=== PATIENT | male | born 1985 | race Caucasian/White ===

== ENCOUNTER 2022-07-28 10:48 | Outpatient (REF) | payer OTHER, SELFPAY ==
[2022-07-28 14:17] LABS: Appearance Urine Clear; Color Urine Yellow; Glucose Urine UA Negative (Negative); Leukocyte Esterase Urine Negative (Negative); Nitrite Urine Negative (Negative); PH 6.5 (5.0-9.0); Urine Blood Negative (Negative); Urine Ketones Negative (Negative); Urine Protein Negative (Neg-Trace)
[2022-07-28 14:22] LABS: Alanine Aminotransferase 9 U/L (0-40); Albumin Level 4.9 g/dL (3.5-5.0); Alkaline Phosphatase 79 U/L (39-117); Anion Gap 14 (12-20); Aspartate Amino Transferase 15 U/L (5-37); Bilirubin Total 1.3 mg/dL (0.0-1.0); Blood Urea Nitrogen 15 mg/dL (9-16); Calcium 9.6 mg/dL (8.4-10.2); Carbon Dioxide 26 mmol/L (22-29); Chloride 104 mmol/L (96-108); Cholesterol 129 mg/dL; Estimated Glomerular Filt Rate > 60; Glucose Fasting 91 mg/dL (60-99); HDL Cholesterol 37 mg/dL; LDL Cholesterol Calculated 79 mg/dl; Potassium 4.2 mmol/L (3.3-5.1); Sodium 140 mmol/L (135-145); Total Protein 7.4 g/dL (6.5-8.0); Triglycerides 68 mg/dL
[2022-07-28 14:44] LABS: TSH reflex Free T4 1.33 uIU/mL (0.32-4.0)
[2022-07-28 15:03] LABS: Syphilis Screen Nonreactive (Nonreactive)
[2022-07-31 09:13] LABS: HBS Num1 144.95 mIU/mL (0-7.99); HBc Num1 0.12 S/CO (0.00-0.79); HBsAGNum1 0.23 S/CO (0.00-0.99); HIV AB/AG Nonreactive (Nonreactive); HIV Num 1 0.08 S/CO (0.00-0.99); Hepatitis B Core Antibody Nonreactive (Nonreactive); Hepatitis B Surface Antigen Negative (Negative); ~HepC Num1 0.14 S/CO (0.00-0.79); ~Hepatitis B Surface Antibody REACTIVE (Nonreactive); ~Hepatitis C Antibody Nonreactive (Nonreactive)
== END 2022-07-28 10:49 | disposition home or self-care (01) ==
LOC: HO.WFDLDS 10:48
PROVIDERS: Visit Provider Family Medicine
DX: Z00.00 Encounter for general adult medical examination without abnormal findings (principal); Z11.4 Encounter for screening for human immunodeficiency virus [HIV]; Z11.59 Encounter for screening for other viral diseases; Z13.220 Encounter for screening for lipoid disorders; Z11.3 Encounter for screening for infections with a predominantly sexual mode of transmission; Z13.29 Encounter for screening for other suspected endocrine disorder
CPT/HCPCS: 36415; 80053; 80061; 81003; 84443; 86704; 86706; 86780; 86803; 87340; 87389

== ENCOUNTER 2023-10-08 13:46 | Outpatient (AMB) | payer BC, SELFPAY ==
[2023-10-08 13:51] VITALS: BP 118/74; PULSE 70; RESP 13; TEMP 36.5; O2SAT 99; BMI 27.3
--- NOTE | 2023-10-08 13:51 | MHC.PC.OV ---
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 No recent CPE-labs to review. His HDL was low at 37 on 07/28/22. Pt does report bright red blood in stools and tinges the toilet bowl. He reports pain associated with the movement. [facility] Medical History No pertinent past medical history Surgical History H/O shoulder surgery Social History Housing: House Patient Tobacco Use Status: Never used Tobacco e-Cigarette/Vaping Use: Never Used Second Hand Smoke Exposure: No service: No Current occupational status: employed Current occupation: [employer] Cognitive needs: No Hearing needs: No Vision needs: Yes Questionnaire PHQ-9 Over the last 2 weeks, how often have you been bothered by any of the following problems? 1. Little interest or pleasure in doing things: not at all 2. Feeling down, depressed, or hopeless: not at all 3. Trouble falling or staying asleep, or sleeping too much: several days 4. Feeling tired or having little energy: not at all 5. Poor appetite or overeating: not at all 6. Feeling bad about yourself - or that you are a failure or have let yourself or your family down: not at all 7. Trouble concentrating on things, such as reading the newspaper or watching television: several days 8. Moving or speaking so slowly that other people could have noticed. Or the opposite - being so fidgety or restless that you have been moving around a lot more than usual: not at all 9. Thoughts that you would be better off or of hurting yourself in some way: not at all Total score: 2 Depression Screening Interpretation: Negative Depression Screening Done: Yes 12639 - PHQ-9 Billing: Yes Source: Developed by Drs. Lennox Bennett, Liudmila Loera, Gael Carias and colleagues, with an educational jose from [employer]. Thrive Questionnaire Date Thrive assessed: 10/08/23 I am a: Patient What is your living situation today?: I have a steady place to live Within the past 12 months, did the food you bought not last and you didn't have the money to get more?: Never true Within the past 12 months, did you worry whether your food would run out before you got money to buy more?: Never true Do you have trouble paying for medicines?: No Do you have trouble getting transportation to medical appointments?: No Do you have trouble paying your heating and electricity bill?: No Do you have trouble taking care of your child, family member or friend?: No Do you have trouble with day-to-day activities such as bathing, preparing meals, shopping, managing finances, etc.?: No Are you currently unemployed and looking for a job?: No Are you interested in more education?: No Please select the resources that you would like help with: Education Currently or been in a relationship where the following occur: no concerns reported AUDIT C Alcohol Use Questionnaire (AUDIT-C) 1. How often do you have a drink containing alcohol?: Monthly or less 2. How many drinks containing alcohol do you have on a typical day when you are drinking?: 3 or 4 3. How often do you have six or more drinks on one occasion?: Never Total Score: 2 SEPIDEH-7 AMB Questionnaire SEPIDEH-7 Date SEPIDEH - 7 assessed: 10/08/23 Feeling nervous, anxious, or on edge: 0 = Not at all Not being able to stop or control worryin = Not at all Worrying too much about different things: 0 = Not at all Trouble relaxin = Not at all Being so restless that it is hard to sit still: 3 = Nearly every day Becoming easily annoyed or irritable: 2 = More than half the days Feeling afraid as if something awful might happen: 0 = Not at all Total SEPIDEH-7 score (0-4 normal; 5-9 mild; 10-14 moderate; 15-21 severe): 5 Source: Developed by Drs. Lennox Bennett, Liudmila Loera, Gael Carias and colleagues, with an educational jose from [employer]. SEPIDEH-7 Assessment Billing SEPIDEH-7 Assessment Tool: SEPIDEH-7 Assessment 53012 Review of Systems Const Denies chills, Denies fatigue, Denies fever(s), Denies headache(s) and Denies weakness Eyes Denies change in vision ENT Denies dizziness, Denies headache(s), Denies hearing loss, Denies nasal congestion, Denies sinus pain, Denies sinus pressure and Denies sore throat Card Denies chest pain, Denies lightheadedness, Denies dyspnea and Denies other (palpitations) Resp Denies cough, Denies dyspnea and Denies wheezing GI Denies abdominal pain, Denies melena, Denies hematochezia, Denies change in bowel habits, Denies dyspepsia and Denies nausea Denies hematuria and Denies dysuria Musc Denies abnormal gait, Denies myalgias, Denies arthralgias, Denies numbness and Denies tingling Skin/Breast Denies rash, Denies unusual bruising and Denies wounds Neuro Denies abnormal gait, Denies dizziness, Denies headache(s), Denies memory loss, Denies numbness, Denies Sensory deficit (Neuro), Denies tingling and Denies weakness Psych Denies anxiety, Denies depression and Denies memory loss Endo Denies cold intolerance, Denies fatigue, Denies heat intolerance, Denies polydipsia and Denies polyuria Carlos/Lymph Denies easy bleeding and Denies easy bruising Aller/Immun Denies wheezing Physical exam (Primary Care) Vital Signs: Last Vital Signs Temp 97.7 F 10/08/23 13:51 Pulse 70 10/08/23 13:51 Resp 13 10/08/23 13:51 BP 118/74 10/08/23 13:51 Pulse Ox 99 10/08/23 13:51 Oxygen Delivery Method Room Air 10/08/23 13:51 BMI result Body Mass Index 27.3 Tobacco/Smoking Status: Tobacco use Status Tobacco use date assessed 10/08/23 10/08/23 14:02 Patient Tobacco Use Status Never used Tobacco 10/08/23 14:02 e-Cigarette/Vaping Use Never Used 10/08/23 14:02 PHQ-9: PHQ-9 Score PHQ-9: Total score 2 10/08/23 14:17 Depression Screening Interpretation: Negative Thrive Assessment: Date of Thrive Assessment Date Thrive assessed 10/08/23 10/08/23 14:02 Currently or been in a relationship where the following occur: no concerns reported Const General: no acute distress, well developed, alert and awake Nutritional Appearance: well nourished Orientation/consciousness: patient oriented x3 HENMT Head: Yes normocephalic and Yes atraumatic Ears: hearing grossly normal bilaterally and TM's normal bilaterally General nose exam: Normal external nose present and Normal nares present Mouth: Normal oral and palatal mucosa present and moist mucous membranes Teeth and gingiva: dentition normal Throat: Yes posterior oropharynx normal Eyes General: appearance normal, both eyes and all related structures Pupils: Equal, round and reactive pupils present and Pupil accommodation reflex normal EOM: EOMs intact bilaterally Neck Neck: Yes normal visual inspection, Yes no lymphadenopathy and Yes trachea midline Thyroid: Thyroid normal Carotids: no bruits Lymphatic: no lymphadenopathy noted Chest Chest palpation & inspection: normal inspection of the chest Resp Effort & Inspection: normal respiratory effort Auscultation: clear to auscultation bilaterally Cardio Rate: regular rate Rhythm: regular rhythm Heart sounds: S1 normal heart sound present, S2 normal heart sound present, no gallops, no murmurs and no rubs Bruits: no abdominal aortic bruits and no carotid bruits GI Palpation (GI): No Abdominal aortic bruit present, Soft to palpation, nontender, No hepatosplenomegaly present and No Rebound tenderness present Auscultation: normal bowel sounds General: Yes no CVA tenderness Back/Spine/Pelvis Back: no CVA tenderness Cervical Spine: cervical ROM normal and No Cervical spine tenderness Thoracic/Lumbar Spine: thoraco-lumbar ROM normal, No pain with thoraco-lumbar ROM, No thoracic spinal tenderness and No lumbar spinal tenderness Skin Lesions: no lesions Rashes: no rashes Trauma: no lacerations or abrasions Wounds: no wounds Nails: normal Neuro General: patient oriented x3 Cranial nerves: Yes Equal, round and reactive pupils present Cognition (Neuro): normal cognition Gait exam (Neuro): Normal gait present Motor exam (neuro): 5/5 motor strength present throughout Sensory Exam: No Sensory deficit (Neuro) Deep tendon reflexes (DTR's): Right patellar reflex intensity grade: 2+ and Left patellar reflex intensity grade: 2+ Extrem General: Yes normal to inspection and No edema Psych Appearance: grossly normal Affect: normal affect Attitude: cooperative Thought process: Normal thought process present Assessment and Plan Assessment & Plan (1) Adult general medical exam: Code(s): Z00.00 - Encounter for general adult medical examination without abnormal findings Plan: 38-year-old?male?presents?for?complete?physical?exam (2) Blood in stool: Code(s): K92.1 - Melena Plan: Bright?red?blood?per?rectum?associated?with?painful?bowel?movement Exam: (3) Low HDL (under 40): Code(s): E78.6 - Lipoprotein deficiency Plan: Had?encouraged?exercise?and?we?will?repeat?levels?again?and?review?in?a?few?weeks (4) Hemorrhoids: Code(s): K64.9 - Unspecified hemorrhoids Plan: Blood?per?rectum?and?pain?with?stools. Hemorrhoid?visualized?on?exam Hydrate?well?and?keep?stools?soft.??Will?give?patient?a?script?for?Colace. If?not?improving,?he?can?let?me?know?at?our?follow-up?telemedicine?appointment.??Would?refer?to?GI Medications: New docusate sodium (Colace) 100 mg PO DAILY 10 caps 1RF 10 days Coding Level of Care Code Est Pt Level 3 (44223) Est Pt Prev Care 18-39y(69929) Diagnoses Adult general medical exam Z00.00 Blood in stool K92.1 Low HDL (under 40) E78.6 Hemorrhoids K64.9 Additional Codes SEPIDEH-7 Assessment Billing - SEPIDEH-7 Assessment Tool: SEPIDEH-7 Assessment 54830 ([id number])
== END 2023-10-08 14:30 | disposition home or self-care (01) ==
PROVIDERS: PCP Family Medicine; Visit Provider Family Medicine
DX: Z00.00 Encounter for general adult medical examination without abnormal findings (principal); K92.1 Melena; E78.6 Lipoprotein deficiency; K64.9 Unspecified hemorrhoids
CPT/HCPCS: 99213; 99395

== ENCOUNTER 2023-10-12 09:13 | Outpatient (REF) | payer BC, SELFPAY ==
[2023-10-12 11:37] LABS: MANUAL DIFF FLAG NO
[2023-10-12 11:41] LABS: Basophils Percent Auto 0.5 % (0-2); Eosinophils Absolute Auto 0.1 X10*3/uL (0.0-0.4); Eosinophils Percent Auto 3.3 % (0-4); Hematocrit 44.9 % (42.0-52.0); Hemoglobin 15.5 g/dl (14.0-18.0); Imm Gran Abs Auto 0.01 X10*3/uL (0.00-0.03); Imm Gran Pct Auto 0.3 % (0.0-0.4); Lymphocytes Absolute Auto 0.9 X10*3/uL (1.2-4.9); Lymphocytes Percent Auto 22.4 % (20-40); Mean Corpuscular HGB Conc 34.5 g/dl (31.0-36.0); Mean Corpuscular Hemoglobin 29.7 pg (27.0-33.0); Mean Platelet Volume 10.8 fL (9.4-12.4); Monocytes Absolute Auto 0.3 X10*3/uL (0.1-1.2); Monocytes Percent Auto 7.9 % (2-11); Neutrophils Absolute Auto 2.6 x10*3/uL (2.0-8.3); Neutrophils Percent Auto 65.6 % (45-73); Platelet Count 190 X10*3/uL (160-400); Red Blood Count 5.22 X10*6/uL (4.60-5.80); Red Cell Distribution Width 11.8 % (11.0-16.0); White Blood Count 3.9 X10*3/uL (4.8-10.8)
[2023-10-12 12:33] LABS: Alanine Aminotransferase 17 U/L (0-40); Albumin Level 4.6 g/dL (3.5-5.0); Alkaline Phosphatase 65 U/L (39-117); Anion Gap 10 (12-20); Aspartate Amino Transferase 19 U/L (5-37); Blood Urea Nitrogen 12 mg/dL (9-16); Calcium 9.2 mg/dL (8.4-10.2); Carbon Dioxide 30 mmol/L (22-29); Chloride 106 mmol/L (96-108); Cholesterol 118 mg/dL (<200); Estimated Glomerular Filt Rate > 60; Glucose Fasting 87 mg/dL (60-99); HDL Cholesterol 35 mg/dL (>40); LDL Cholesterol Calculated 70 mg/dL (<100); Potassium 4.5 mmol/L (3.3-5.1); Sodium 141 mmol/L (135-145); Total Protein 7.1 g/dL (6.5-8.0); Triglycerides 67 mg/dL (<150)
[2023-10-12 12:39] LABS: TSH reflex Free T4 1.99 uIU/mL (0.32-4.0)
== END 2023-10-12 09:14 | disposition home or self-care (01) ==
LOC: HO.WFDLDS 09:13
PROVIDERS: Visit Provider Family Medicine
DX: Z00.00 Encounter for general adult medical examination without abnormal findings (principal)
CPT/HCPCS: 36415; 80053; 80061; 84443; 85025

== ENCOUNTER 2023-11-12 16:49 | Outpatient (AMB) | payer BC, SELFPAY ==
--- NOTE | 2023-11-12 16:43 | MHC.PC.OV ---
Intake Visit Reasons: f/u CPE-labs Intake Note: Patient is following up on labs today. Allergies No Known Allergies Allergy (Verified 11/12/23 16:45) Tobacco use date assessed: 11/12/23 HPI f/u CPE-labs HPI Details 38 y/o male presents to f/u CPE-labs via telemedicine. Labs were drawn 10/12/23. Reviewed labs with pt. Triglycerides 67. TC 118. LDL 70. HDL low at 35. PFSH Medical History No pertinent past medical history Surgical History H/O shoulder surgery Social History Housing: House Patient Tobacco Use Status: Never used Tobacco e-Cigarette/Vaping Use: Never Used Second Hand Smoke Exposure: No service: No Current occupational status: employed Current occupation: [employer] Cognitive needs: No Hearing needs: No Vision needs: Yes Questionnaire Thrive Questionnaire Date Thrive assessed: 10/08/23 SEPIDEH-7 AMB Questionnaire SEPIDEH-7 Date SEPIDEH - 7 assessed: 10/08/23 Source: Developed by Drs. Lennox Bennett, Liudmila Loera, Gael Carias and colleagues, with an educational jose from [employer]. Review of Systems Const Denies chills, Denies fatigue, Denies fever(s), Denies headache(s) and Denies weakness ENT Denies dizziness and Denies headache(s) Card Denies dyspnea Resp Denies cough, Denies dyspnea, Denies wheezing and Denies other (shortness of breath) Musc Denies numbness and Denies tingling Neuro Denies dizziness, Denies headache(s), Denies numbness, Denies tingling and Denies weakness Psych Denies anxiety and Denies depression Endo Denies fatigue Aller/Immun Denies wheezing Physical exam (Primary Care) Tobacco/Smoking Status: Tobacco use Status Tobacco use date assessed 11/12/23 11/12/23 16:46 Patient Tobacco Use Status Never used Tobacco 11/12/23 16:46 e-Cigarette/Vaping Use Never Used 11/12/23 16:46 Thrive Assessment: Date of Thrive Assessment Date Thrive assessed 10/08/23 11/12/23 16:46 Telehealth Telehealth Location of provider rendering services: practice address Location of patient: address on file Patient Identification confirmed using: Name, : Yes Telehealth method: voice only Patient verbally consented to treatment: Yes Patient verbally consented to billing insurance company: Yes Patient informed of any privacy concerns related to visit: Yes Minutes spent on Phone/Video with Pt.: 5 Assessment and Plan Assessment & Plan (1) Low HDL (under 40): Code(s): E78.6 - Lipoprotein deficiency Plan: Mildly?low?HDL?persists?and?is?slightly?worse?than?last?year. Encouraged?ongoing?exercise?and?since?his?other?lipid?levels?are?well?controlled, he?can?trial?a?supplement?source?of?[place]?3?fatty?acids?such?as?flaxseed?oil?or?fish?oil. We?can?follow-up?at?his?next?blood?draw?prior?to?his?physical. Coding Level of Care Code Tele Est Pt Level 2 (07396) Diagnoses Low HDL (under 40) E78.6
== END 2023-11-12 17:00 ==
LOC: HO.HMGFM 16:49
PROVIDERS: PCP Family Medicine; Visit Provider Family Medicine
DX: E78.6 Lipoprotein deficiency (principal)
CPT/HCPCS: 99441

== ENCOUNTER 2024-10-10 14:00 | Outpatient (AMB) | payer OTHER, SELFPAY ==
[2024-10-10 14:03] VITALS: BP 110/66; PULSE 66; O2SAT 98; BMI 26.3
--- NOTE | 2024-10-10 14:03 | A.OFFPC_ITS ---
Vital Signs 10/10/24 14:03 Height 6 ft Weight 194 lb BMI 26.3 BP 110/66 Blood Pressure Location Rt brachial Position Sitting Pulse 66 Pulse Source Pulse Oximeter Pulse Oximetry (%) 98 Oxygen Delivery Method Room Air Intake Visit Reasons: CPE with follow-up labs Intake Note: pt is here for PE [employer] Required: No Accompanied by: Self / Same As Patient Allergies No Known Allergies Allergy (Verified 10/10/24 14:03) Tobacco use date assessed: 10/10/24 Dental Screening Dental Screen Date: 10/10/24 Did you have a dental visit in the last 12 months?: Yes Did you have a dental problem in the last 6 months where you did not have access to dental care?: No Was dental information given to patient?: Patient has dentist HPI CPE with follow-up labs HPI Details 39 y/o male presents for a CPE with f/u labs and health maint. No recent labs to review. Has complaints of wrist pain. Has been using ibuprofen for relief. Has complaints of difficulty concentrating. PFSH Medical History No pertinent past medical history Surgical History H/O shoulder surgery Social History Housing: House Patient Tobacco Use Status: Never used Tobacco e-Cigarette/Vaping Use: Never Used Second Hand Smoke Exposure: No service: No Current occupational status: employed Current occupation: [employer] Cognitive needs: No Hearing needs: No Vision needs: Yes Questionnaire PHQ-9 Over the last 2 weeks, how often have you been bothered by any of the following problems? 1. Little interest or pleasure in doing things: not at all 2. Feeling down, depressed, or hopeless: not at all 3. Trouble falling or staying asleep, or sleeping too much: several days 4. Feeling tired or having little energy: not at all 5. Poor appetite or overeating: not at all 6. Feeling bad about yourself - or that you are a failure or have let yourself or your family down: not at all 7. Trouble concentrating on things, such as reading the newspaper or watching television: several days 8. Moving or speaking so slowly that other people could have noticed. Or the opposite - being so fidgety or restless that you have been moving around a lot more than usual: not at all 9. Thoughts that you would be better off or of hurting yourself in some way: not at all Total score: 2 Depression Screening Interpretation: Negative Depression Screening Done: Yes 72976 - PHQ-9 Billing: Yes Source: Developed by Drs. Lennox Bennett, Liudmila Loera, Gael Carias and colleagues, with an educational jose from [employer]. Thrive Questionnaire Date Thrive assessed: 10/10/24 I am a: Patient What is your living situation today?: I have a steady place to live Within the past 12 months, did the food you bought not last and you didn't have the money to get more?: Never true Within the past 12 months, did you worry whether your food would run out before you got money to buy more?: Never true Do you have trouble paying for medicines?: No Do you have trouble getting transportation to medical appointments?: No Do you have trouble paying your heating and electricity bill?: No Do you have trouble taking care of your child, family member or friend?: No Do you have trouble with day-to-day activities such as bathing, preparing meals, shopping, managing finances, etc.?: No Are you currently unemployed and looking for a job?: No Are you interested in more education?: No Please select the resources that you would like help with: None Currently or been in a relationship where the following occur: No concerns reported THRIVE Score: 0 AUDIT C Alcohol Use Questionnaire (AUDIT-C) 1. How often do you have a drink containing alcohol?: Monthly or less 2. How many drinks containing alcohol do you have on a typical day when you are drinking?: 3 or 4 3. How often do you have six or more drinks on one occasion?: Never Total Score: 2 Score Reviewed/Action Taken: Yes SEPIDEH-7 AMB Questionnaire SEPIDEH-7 Date SEPIDEH - 7 assessed: 10/10/24 Feeling nervous, anxious, or on edge: 0 = Not at all Not being able to stop or control worryin = Not at all Worrying too much about different things: 0 = Not at all Trouble relaxin = Not at all Being so restless that it is hard to sit still: 3 = Nearly every day Becoming easily annoyed or irritable: 2 = More than half the days Feeling afraid as if something awful might happen: 0 = Not at all Total SEPIDEH-7 score (0-4 normal; 5-9 mild; 10-14 moderate; 15-21 severe): 5 Source: Developed by Drs. Lennox Bennett, Liudmila Loera, Gael Carias and colleagues, with an educational jose from [employer]. SEPIDEH-7 Assessment Billing SEPIDEH-7 Assessment Tool: SEPIDEH-7 Assessment 04805 Review of Systems Const Denies chills, Denies fatigue, Denies fever(s), Denies headache(s) and Denies weakness Eyes Denies change in vision ENT Denies dizziness, Denies headache(s), Denies hearing loss, Denies nasal congestion, Denies sinus pain, Denies sinus pressure and Denies sore throat Card Denies chest pain, Denies lightheadedness, Denies dyspnea and Denies other (palpitations) Resp Denies cough, Denies dyspnea and Denies wheezing GI Denies abdominal pain, Denies melena, Denies hematochezia, Denies change in bowel habits, Denies dyspepsia and Denies nausea Denies hematuria and Denies dysuria Musc Details: Wrist pain Denies abnormal gait, Denies myalgias, Denies arthralgias, Denies numbness and Denies tingling Skin/Breast Denies rash, Denies unusual bruising and Denies wounds Neuro Denies abnormal gait, Denies dizziness, Denies headache(s), Denies memory loss, Denies numbness, Denies Sensory deficit (Neuro), Denies tingling and Denies weakness Psych Denies anxiety, Denies depression and Denies memory loss Endo Denies cold intolerance, Denies fatigue, Denies heat intolerance, Denies polydipsia and Denies polyuria Carlos/Lymph Denies easy bleeding and Denies easy bruising Aller/Immun Denies wheezing Physical exam (Primary Care) Vital Signs: Last Vital Signs Pulse 66 10/10/24 14:03 BP 110/66 10/10/24 14:03 Pulse Ox 98 10/10/24 14:03 Oxygen Delivery Method Room Air 10/10/24 14:03 BMI result Body Mass Index 26.3 Tobacco/Smoking Status: Tobacco use Status Tobacco use date assessed 10/10/24 10/10/24 14:08 Patient Tobacco Use Status Never used Tobacco 10/10/24 14:08 e-Cigarette/Vaping Use Never Used 10/10/24 14:08 PHQ-9: PHQ-9 Score PHQ-9: Total score 2 10/10/24 14:55 Depression Screening Interpretation: Negative Thrive Assessment: Date of Thrive Assessment Date Thrive assessed 10/10/24 10/10/24 14:08 Currently or been in a relationship where the following occur: No concerns reported Const General: no acute distress, well developed, alert and awake Nutritional Appearance: well nourished Orientation/consciousness: patient oriented x3 HENMT Head: Yes normocephalic and Yes atraumatic Ears: hearing grossly normal bilaterally and TM's normal bilaterally General nose exam: Normal external nose present and Normal nares present Mouth: Normal oral and palatal mucosa present and moist mucous membranes Teeth and gingiva: dentition normal Throat: Yes posterior oropharynx normal Eyes General: appearance normal, both eyes and all related structures Pupils: Equal, round and reactive pupils present and Pupil accommodation reflex normal EOM: EOMs intact bilaterally Neck Neck: Yes normal visual inspection, Yes no lymphadenopathy and Yes trachea midline Thyroid: Thyroid normal Carotids: no bruits Lymphatic: no lymphadenopathy noted Chest Chest palpation & inspection: normal inspection of the chest Resp Effort & Inspection: normal respiratory effort Auscultation: clear to auscultation bilaterally Cardio Rate: regular rate Rhythm: regular rhythm Heart sounds: S1 normal heart sound present, S2 normal heart sound present, no gallops, no murmurs and no rubs Bruits: no abdominal aortic bruits and no carotid bruits GI Palpation (GI): No Abdominal aortic bruit present, Soft to palpation, nontender, No hepatosplenomegaly present and No Rebound tenderness present Auscultation: normal bowel sounds General: Yes no CVA tenderness Back/Spine/Pelvis Back: no CVA tenderness Cervical Spine: cervical ROM normal and No Cervical spine tenderness Thoracic/Lumbar Spine: thoraco-lumbar ROM normal, No pain with thoraco-lumbar ROM, No thoracic spinal tenderness and No lumbar spinal tenderness Skin Lesions: no lesions Rashes: no rashes Trauma: no lacerations or abrasions Wounds: no wounds Nails: normal Neuro General: patient oriented x3 Cranial nerves: Yes Equal, round and reactive pupils present Cognition (Neuro): normal cognition Gait exam (Neuro): Normal gait present Motor exam (neuro): 5/5 motor strength present throughout Sensory Exam: No Sensory deficit (Neuro) Deep tendon reflexes (DTR's): Right patellar reflex intensity grade: 2+ and Left patellar reflex intensity grade: 2+ Extrem General: Yes normal to inspection and No edema Psych Appearance: grossly normal Affect: normal affect Attitude: cooperative Thought process: Normal thought process present Coding Level of Care Code Est Pt Prev Care 18-39y(24483) Diagnoses Adult general medical exam Z00.00 Wrist pain M25.539 Difficulty concentrating R41.840 Additional Codes SEPIDEH-7 Assessment Billing - SEPIDEH-7 Assessment Tool: SEPIDEH-7 Assessment 84217 ([id number]) PHQ-9 - 10769 - PHQ-9 Billing: Yes ([id number]) Assessment & Plan Assessment & Plan (1) Adult general medical exam: Code(s): Z00.00 - Encounter for general adult medical examination without abnormal findings Category: Medical Plan: 39-year-old?male?presents?for?complete?physical?exam Encouraged?healthy?diet?with?active?lifestyle (2) Wrist pain: Code(s): M25.539 - Pain in unspecified wrist Category: Medical Plan: Bilateral?radial/dorsal?wrist?pain Negative?Phalen?and?Tinel?signs Equivocal?Ovi?sign Possible?tenosynovitis?or?tendinitis. Patient?already?has?a?wrist?brace?and?I?encouraged?him?to?use?this Will?give?him?a?script?for?meloxicam Check?x-ray?and?refer?to?hand?specialist (3) Difficulty concentrating: Code(s): R41.840 - Attention and concentration deficit Category: Medical Plan: Patient?notes?difficulty?concentrating?and?says?his?? has?notice?this?as?well. He?says?that?he?has?2?children?diagnosed?with?ADD Will?refer?him?to?C?outpatient?psychiatric?consult?team?for?evaluation Orders: Orders XR hand RT min 3V Today M25.539 - Pain in unspecified wrist XR hand LT min 3V Today M25.539 - Pain in unspecified wrist Referrals Hand Surgery Referral M25.539 - Pain in unspecified wrist Psychiatry Outpatient Consultation Service R41.840 - Attention and concentration deficit Medications: New meloxicam 15 mg PO DAILY 30 days 30 tabs 2RF M25.539 - Pain in unspecified wrist
== END 2024-10-10 15:09 | disposition home or self-care (01) ==
PROVIDERS: PCP Family Medicine; Visit Provider Family Medicine
DX: Z00.00 Encounter for general adult medical examination without abnormal findings (principal); M25.539 Pain in unspecified wrist; R41.840 Attention and concentration deficit

== ENCOUNTER → 2024-10-10 14:00 | Outpatient (BNVA) | payer OTHER, SELFPAY | PROVIDERS: PCP Family Medicine; Visit Provider Family Medicine | DX: Z00.00 Encounter for general adult medical examination without abnormal findings (principal); M25.531 Pain in right wrist; M25.532 Pain in left wrist; R41.840 Attention and concentration deficit | CPT/HCPCS: 96127 ==

== ENCOUNTER 2024-11-07 07:07 | Outpatient (REF) | payer OTHER, SELFPAY | END 2024-11-07 07:08 | disposition home or self-care (01) | LOC: HO.HOSX 07:07 | DX: Z13.89 Encounter for screening for other disorder (principal) ==

== ENCOUNTER 2024-12-16 13:01 | Outpatient (AMB) | payer OTHER, SELFPAY ==
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
== END 2024-12-16 14:30 | disposition home or self-care (01) ==
LOC: HO.HOP 13:01
PROVIDERS: PCP Family Medicine; Visit Provider Clinical Nurse Specialist Psychiatric/Mental Health
DX: F90.2 Attention-deficit hyperactivity disorder, combined type (principal)
CPT/HCPCS: 90792

== ENCOUNTER → 2024-12-16 13:01 | Outpatient (BNVA) | payer OTHER, SELFPAY | PROVIDERS: PCP Family Medicine; Visit Provider Clinical Nurse Specialist Psychiatric/Mental Health | DX: F90.2 Attention-deficit hyperactivity disorder, combined type (principal); Z71.89 Other specified counseling | CPT/HCPCS: 90792 ==

== ENCOUNTER 2025-01-22 14:51 | Outpatient (AMB) | payer OTHER, SELFPAY ==
--- NOTE | 2025-01-22 15:06 | MHC.OFFVISPS ---
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 He is functioning better at home and work; he reports no change in appetite. And instead of falling asleep immediately it takes him 10-15 minutes but he is still getting adequate sleep; no other side effects. PHQ9= 2 down from 13 and GAD7= 2 down from 10. Past Psychiatric History: none Subjective Subjective Subjective Medication Compliance: Yes Side effects from medications: No Review of Systems Medical Review of Systems: unchanged Mental Status Exam Mental Status Exam Patient Appearance: Well Grooomed Patient Orientation: Person, Place, Time and Situation Level of Consciousness: Awake and Appropriate Patient Behavior: Appropriate and Cooperative Mood Description: Happy and Cheerful Affect Description: Happy and Cheerful Ability to Follow Directions: Good Speech Pattern: Clear Memory Description: Intact Hallucinations: None Delusions: Not Present Thought Process: Intact and Goal Oriented Thought Content: positive for Intact and positive for Goal Oriented Judgement: Good Assessment and Plan Assessment & Plan (1) ADHD (attention deficit hyperactivity disorder), combined type: Status: Acute Code(s): F90.2 - Attention-deficit hyperactivity disorder, combined type Plan continue medications as per below follow up with PCP Medications: Refilled dextroamphetamine-amphetamine 15 mg ER (Adderall XR) Partial Fill upon patient request. Take at beginning of work shift 15 mg PO QAM 30 caps 0RF dextroamphetamine-amphetamine 5 mg (Adderall) Partial Fill upon patient request. Take in afternoon as needed 5 mg PO DAILY PRN 30 tabs 0RF ADHD symptoms Counseling and coordination of Care Pt. Self Management counseling: Mod caffeine/ETOH intake, Nutrition education and improvement, Sleep hygiene, General coping skills and Problem solving Medication management counseling: Effectiveness, Side effects, Dosing range, Duration, Drug interaction and Adherence Diagnosis and Prognosis Counseling: Accuracy of diagnosis, Prognosis over time, Impact of diagnosis on life functions, Impact of family relationship, Problematic behaviors secondary to diagnosis and Adequacy of current interventions Details: I spent 30 minutes reviewing the record, seeing the patient and documenting in the medical record. Counseling provided to the patient/caregiver as outlined below. Addressed patient/caregiver concerns regarding current medication regime including effective adherence. Addressed patient/caregiver concerns regarding diagnosis and prognosis including accuracy of diagnosis, prognosis over time, impact of diagnosis. Addressed patient/caregiver concerns regarding impact of recent stressors. [facility] Medical History No pertinent past medical history Surgical History H/O shoulder surgery Social History Housing: House Patient Tobacco Use Status: Never used Tobacco e-Cigarette/Vaping Use: Never Used Second Hand Smoke Exposure: No service: No Current occupational status: employed Current occupation: [employer] Cognitive needs: No Hearing needs: No Vision needs: Yes Coding Level of Care Code Est Pt Level 4 (22250) Diagnoses ADHD (attention deficit hyperactivity disorder), combined type F90.2
== END 2025-01-22 15:59 | disposition home or self-care (01) ==
LOC: HO.HOP 14:51
PROVIDERS: PCP Family Medicine; Visit Provider Clinical Nurse Specialist Psychiatric/Mental Health
DX: F90.2 Attention-deficit hyperactivity disorder, combined type (principal)
CPT/HCPCS: 99214

== ENCOUNTER → 2025-01-22 14:51 | Outpatient (BNVA) | payer OTHER, SELFPAY | PROVIDERS: PCP Family Medicine; Visit Provider Clinical Nurse Specialist Psychiatric/Mental Health ==

== ENCOUNTER 2025-03-04 10:28 | Outpatient (AMB) | payer OTHER, SELFPAY ==
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
[2025-03-04 11:10] VITALS: BP 100/80; PULSE 61; RESP 12; TEMP 36.4; O2SAT 97; BMI 26.5
== END 2025-03-04 11:51 | disposition home or self-care (01) ==
PROVIDERS: PCP Family Medicine; Visit Provider Family Medicine
DX: S06.0XAA Concussion with loss of consciousness status unknown, initial encounter (principal); V89.2XXA Person injured in unspecified motor-vehicle accident, traffic, initial encounter; M25.569 Pain in unspecified knee; S33.5XXA Sprain of ligaments of lumbar spine, initial encounter

== ENCOUNTER → 2025-03-04 10:28 | Outpatient (BNVA) | payer OTHER, SELFPAY | PROVIDERS: PCP Family Medicine; Visit Provider Family Medicine ==

== ENCOUNTER 2025-03-05 10:28 | Outpatient (REF) | payer OTHER, SELFPAY ==
--- NOTE | ~2025-03-05 | XR_ITS ---
Examination: Three-view bilateral knee INDICATION: Knee pain COMPARISON: None TECHNIQUE: Bilateral standing AP, lateral, and sunrise view, bilateral knees. Lower extremity joints FINDINGS: RIGHT KNEE: There is mild narrowing of the medial compartment. Joint spaces are preserved elsewhere. There is no joint effusion. LEFT KNEE: There is mild narrowing of the medial joint space. Other joint spaces are preserved. There is no joint effusion. Otherwise unremarkable. XR/XR Knee Floyd 3V Impression: Right knee demonstrate nonspecific mild medial joint compartment narrowing. Left knee demonstrates nonspecific mild medial joint compartment narrowing. Electronically signed by: Kaushal Manriquez MD 03/05/2025 11:31 AM EDT
== END 2025-03-05 10:29 | disposition home or self-care (01) ==
LOC: HO.XRAY 10:28
PROVIDERS: PCP Family Medicine; Visit Provider Family Medicine
DX: M25.561 Pain in right knee (principal); M25.562 Pain in left knee
CPT/HCPCS: 73562

== ENCOUNTER → 2025-03-05 10:32 | Outpatient (BNV) | payer OTHER, SELFPAY | PROVIDERS: PCP Family Medicine; Visit Provider Radiology Diagnostic Radiology | DX: M25.561 Pain in right knee (principal); M25.562 Pain in left knee | CPT/HCPCS: 73562 ==

== ENCOUNTER 2025-03-11 10:18 | Outpatient (AMB) | payer OTHER, SELFPAY ==
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
[2025-03-11 10:35] VITALS: BP 110/70; PULSE 81; RESP 14; TEMP 36.6; O2SAT 98; BMI 26.2
== END 2025-03-11 11:11 | disposition home or self-care (01) ==
LOC: HO.HMCFM 10:18
PROVIDERS: PCP Family Medicine; Visit Provider Family Medicine
DX: S06.0XAA Concussion with loss of consciousness status unknown, initial encounter (principal); S33.5XXA Sprain of ligaments of lumbar spine, initial encounter; M25.562 Pain in left knee; Z04.3 Encounter for examination and observation following other accident; V89.2XXA Person injured in unspecified motor-vehicle accident, traffic, initial encounter

== ENCOUNTER → 2025-03-11 10:18 | Outpatient (BNVA) | payer OTHER, SELFPAY | PROVIDERS: PCP Family Medicine; Visit Provider Family Medicine | DX: Z13.89 Encounter for screening for other disorder (principal) ==

== ENCOUNTER 2025-04-10 10:44 | Outpatient (AMB) | payer OTHER, SELFPAY ==
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
[2025-04-10 11:34] VITALS: BP 110/70; PULSE 73; RESP 14; TEMP 36.5; O2SAT 96; BMI 26.2
== END 2025-04-10 12:08 | disposition home or self-care (01) ==
LOC: HO.HMCFM 10:45
PROVIDERS: PCP Family Medicine; Visit Provider Family Medicine
DX: S33.5XXA Sprain of ligaments of lumbar spine, initial encounter (principal); M25.569 Pain in unspecified knee; V89.2XXA Person injured in unspecified motor-vehicle accident, traffic, initial encounter

== ENCOUNTER 2025-04-17 11:00 | Outpatient (RCR) | payer OTHER, SELFPAY ==
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
--- NOTE | 2025-05-22 14:23 | MHC.PT.DC ---
[facility] [place] Office [place] Office [place] Office [address] Mckenzie Hernandez [address] [phone] F: [phone] F: [phone] F: [phone] F: [phone] Physical Therapy Discharge Report Diagnosis: sprain of ligaments of lumbar spine Date of Surgery: n/a Date of Evaluation: 03/24/25 Date of Discharge: 05/22/25 Treatments to Date: 6 Cancellations to Date: 0 No Shows to Date: 0 Discharge Status: Improved Function Independent with HEP Discharge Summary: Pt was placed on 30 day hold at last visit. Pt has not returned in 30 days so d/c per plan. Electronically signed by: Jojo Haddad, PT, DPT, ATC Please sign and return to therapist. Thank you for your referral.
== END 2025-05-22 14:24 | disposition home or self-care (01) ==
LOC: HO.PTCHIC 11:00
PROVIDERS: PCP Family Medicine; Visit Provider Family Medicine
DX: S33.5XXD Sprain of ligaments of lumbar spine, subsequent encounter (principal); V23.49XD Other motorcycle driver injured in collision with car, pick-up truck or van in traffic accident, subsequent encounter
CPT/HCPCS: 97110; 97140; 97161

== ENCOUNTER 2025-05-21 11:08 | Outpatient (REF) | payer OTHER, SELFPAY | END 2025-05-21 11:09 | disposition home or self-care (01) | LOC: HO.HOSX 11:08 | PROVIDERS: Visit Provider Physician Assistant | DX: Z13.89 Encounter for screening for other disorder (principal) ==

== ENCOUNTER 2025-06-02 11:35 | Outpatient (AMB) | payer OTHER, SELFPAY ==
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
[2025-06-02 11:45] VITALS: BMI 26.2
== END 2025-06-02 11:58 | disposition home or self-care (01) ==
LOC: HO.HOS 11:36
PROVIDERS: PCP Family Medicine; Visit Provider Orthopaedic Surgery
DX: S83.242A Other tear of medial meniscus, current injury, left knee, initial encounter (principal)
CPT/HCPCS: 99203; G2211

== ENCOUNTER 2025-06-29 11:42 | Outpatient (AMB) | payer OTHER, SELFPAY ==
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
[2025-06-29 11:44] VITALS: BP 114/62; PULSE 56; RESP 16; O2SAT 98; BMI 25.9
== END 2025-06-29 12:40 | disposition home or self-care (01) ==
PROVIDERS: PCP Family Medicine; Visit Provider Internal Medicine
DX: S33.5XXA Sprain of ligaments of lumbar spine, initial encounter (principal); S39.012A Strain of muscle, fascia and tendon of lower back, initial encounter; M54.59 Other low back pain; M54.50 Low back pain, unspecified
CPT/HCPCS: 99203

== ENCOUNTER → 2025-07-24 10:43 | Outpatient (BNV) | payer OTHER, SELFPAY | PROVIDERS: PCP Family Medicine; Visit Provider Radiology Diagnostic Radiology | DX: M23.252 Derangement of posterior horn of lateral meniscus due to old tear or injury, left knee (principal); M25.462 Effusion, left knee; M71.22 Synovial cyst of popliteal space [Baker], left knee | CPT/HCPCS: 73721 ==

== ENCOUNTER 2025-07-24 10:52 | Outpatient (REF) | payer OTHER, SELFPAY ==
--- NOTE | ~2025-07-24 | MR_ITS ---
EXAMINATION: MR KNEE WITHOUT CONTRAST, LEFT CLINICAL INFORMATION: S 83.24 2A. Other tear of medial meniscus: Recurrent injury, left. COMPARISON: Correlated to x-ray dated March 05, 2025. TECHNIQUE: MRI of the knee without contrast was performed using routine sequences on a high-field scanner. FINDINGS: MENISCI: Medial Meniscus: Subtle linear signal abnormality within the posterior horn without extending into the articular surface. Lateral Meniscus: Subtle linear signal abnormality, posterior horn extending into the medial articular surface. LIGAMENTS: Cruciate: ACL and PCL are intact. Collateral: Mediolateral collateral ligaments are intact. EXTENSOR MECHANISM: Intact ARTICULAR CARTILAGE/BONE: Patellofemoral Compartment: Normal thickness of the cartilage. No bone marrow signal abnormality to suggest contusion. Medial Compartment: Normal Lateral Compartment: Mild joint space narrowing. JOINT FLUID AND BURSAE: Small amount of fluid. Less than 1 cm bilobed popliteal cyst. There is a 10 mm partially calcified abnormality in the muscular plane posterior to the distal diaphysis of the femur. Flow-void signal within the main vessels is normal. MR/MR knee LT wo con IMPRESSION: Horizontal tear, posterior horn lateral meniscus. Small amount of joint effusion. Small 1 cm popliteal cyst. Electronically signed by: Nino Lima MD 07/24/2025 11:45 AM EDT
== END 2025-07-24 10:53 | disposition home or self-care (01) ==
LOC: HO.MRI 10:52
PROVIDERS: PCP Family Medicine; Visit Provider Orthopaedic Surgery
DX: S83.242A Other tear of medial meniscus, current injury, left knee, initial encounter (principal)
CPT/HCPCS: 73721

== ENCOUNTER 2025-08-05 11:13 | Outpatient (AMB) | payer OTHER, SELFPAY ==
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
[2025-08-05 11:23] VITALS: BMI 25.8
== END 2025-08-05 12:08 | disposition home or self-care (01) ==
LOC: HO.HOS 11:13
PROVIDERS: PCP Family Medicine; Visit Provider Orthopaedic Surgery
DX: M25.562 Pain in left knee (principal)
CPT/HCPCS: 99213; G2211

== ENCOUNTER 2025-08-06 13:08 | Outpatient (AMB) | payer OTHER, SELFPAY ==
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
== END 2025-08-06 14:04 | disposition home or self-care (01) ==
LOC: HO.HOS 13:09
PROVIDERS: PCP Family Medicine; Visit Provider Orthopaedic Surgery
DX: S83.282A Other tear of lateral meniscus, current injury, left knee, initial encounter (principal)
CPT/HCPCS: 99214

== ENCOUNTER 2025-08-20 10:39 | Outpatient (AMB) | payer OTHER, SELFPAY ==
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
[2025-08-20 11:06] VITALS: BP 110/60; PULSE 54; RESP 14; TEMP 37; O2SAT 97; BMI 26.9
== END 2025-08-20 11:39 | disposition home or self-care (01) ==
LOC: HO.HMCFM 10:39
PROVIDERS: PCP Family Medicine; Visit Provider Family Medicine
DX: S83.282A Other tear of lateral meniscus, current injury, left knee, initial encounter (principal)

== ENCOUNTER 2025-09-02 05:51 | Day surgery (SDC) | payer OTHER, SELFPAY ==
[2025-08-20 09:53] VITALS: BMI 25.8
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
[2025-09-02] VITALS (7 sets, daily range): BP systolic 103–112; BP diastolic 66–79; PULSE 45–61; RESP 11–20; TEMP 36.1–36.5; O2SAT 97–100; BMI 26.9
[2025-09-02] MEDS: Lactated Ringers 1,000 ML 100 ML IVCONT (06:42)
--- NOTE | 2025-09-02 08:12 | MHC.SHP ---
Pre-Procedural Eval Section A - 24 Hr Update-Section A only Date of Service: 09/02/25 The patient is an INPATIENT: No Changes since office visit: No Cold of Flu in the past 2 weeks, No New Medical Problems, No Changes in Medication and No Patient answered all questions The patient has been examined within 24 hours of the surgical procedure. The History & Physical has been completed within 30 days and I have reviewed it.: Yes Section B - Complete if H&P > 30 days Chief Complaint: Other tear of lateral meniscus, current injury, Allergies: Allergies Allergy/AdvReac Type Severity Reaction Status Date / Time No Known Allergies Allergy Verified 08/20/25 11:05 Plan I have reviewed the history and physical and performed a pertinent physical examination on my patient. No changes have occurred unless specified. Time Spent With Patient Time: Total time managing care of this patient today ____ minutes.
--- NOTE | 2025-09-02 08:51 | P.BOP_ITS ---
Brief Operative Note Date of Service: 09/02/25 Pre-op diagnosis: Left lateral meniscus tear Post-op diagnosis: other (1) Left lateral meniscus tear 2) left medial femoral condyle chondral lesion) Procedure: Left knee lateral partial meniscectomy with chondroplasty Implants: none Surgeon: Toy Turner MD Anesthesia: local Was an Projection Welding Machine Operator used for this Procedure?: Yes Projection Welding Machine Operator: Kelly Saunders Estimated blood loss (mL): 5 Tourniquet time (min): 20 IV fluids (mL): 750 Pathology: none sent Condition: stable Disposition: PACU
--- NOTE | 2025-09-02 08:58 | W.PM.OPN ---
Operative Note Operative Note Date of Service: 09/02/25 Narrative: Date of Service: 09/02/25 Pre-op diagnosis: Left lateral meniscus tear Post-op diagnosis: other (1) Left lateral meniscus tear 2) left medial femoral condyle chondral lesion) Procedure: Left knee lateral partial meniscectomy with chondroplasty Implants: none Surgeon: Toy Turner MD Anesthesia: local Was an Lecturer In Computer Science used for this Procedure?: Yes Lecturer In Computer Science: Kelly Saunders Estimated blood loss (mL): 5 Tourniquet time (min): 20 IV fluids (mL): 750 Pathology: none sent Condition: stable Disposition: PACU Procedure in detail: Patient was brought to the operating room placed supine on the arthroscopic table and prepped and draped in standard sterile fashion. A time-out was called to identify proper site proper procedure proper surgeon and IV antibiotics per weight were administered. I began by exsanguinating the limb and insufflating tourniquet to 300 mm Hg. Then made a standard anterolateral stab incision. The knee was insufflated with water and 30 degree arthroscope was placed. There was grade 0 fibrillations of the patella and the suprapatellar pouch and the gutters were clean. I descended into the medial compartment where I made my medial portal under direct visualization. The medial meniscus was normal but there was a 5mmx 3mm area of full thickness cartilage damage at the lateral aspect of the weight bearing portion of the MFC. I debrided this with a shaver and cautery down to stable edges. I then examined the notch which was normal. The lateral compartment was then examined with the leg in figure 4 position. THe lateral body has a central tear in the white/white zone. The root was intact. I used a combination of biter shaver and cautery to remove unstable portions of the meniscus. Approximately 15% meniscal volume was removed. I then removed all instrumentation and closed the portals with nylon. 25 mL of 2% Marcaine with epinephrine was injected into the joint and the surrounding soft tissues. Patient was then placed in sterile dressing extubated brought recovery room stable condition. There were no known complications.
== END 2025-09-02 10:30 | disposition home or self-care (01) ==
LOC: HO.SSS 05:51
PROVIDERS: PCP Family Medicine; Visit Provider Orthopaedic Surgery
PROC: (CPT 29870; principal; 2025-09-02 07:30)
DX: S83.282A Other tear of lateral meniscus, current injury, left knee, initial encounter (principal); M94.262 Chondromalacia, left knee; M25.562 Pain in left knee; V49.9XXA Car occupant (driver) (passenger) injured in unspecified traffic accident, initial encounter; Y93.9 Activity, unspecified; Y92.410 Unspecified street and highway as the place of occurrence of the external cause; Y99.9 Unspecified external cause status
CPT/HCPCS: 29881; J0131; J0165; J0690; J1100; J1885; J2003; J2250; J2405; J2704; J2795; J3010

== ENCOUNTER → 2025-09-02 05:51 | Outpatient (BNV) | payer OTHER, SELFPAY | PROVIDERS: PCP Family Medicine; Visit Provider Orthopaedic Surgery | DX: S83.282A Other tear of lateral meniscus, current injury, left knee, initial encounter (principal) | CPT/HCPCS: 29881 ==

== ENCOUNTER 2025-09-08 09:48 | Outpatient (AMB) | payer OTHER, SELFPAY ==
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
== END 2025-09-08 10:25 | disposition home or self-care (01) ==
LOC: HO.HOS 09:49
PROVIDERS: PCP Family Medicine; Visit Provider Physician Assistant
DX: S83.242A Other tear of medial meniscus, current injury, left knee, initial encounter (principal)
CPT/HCPCS: 99024

== ENCOUNTER 2025-09-30 09:32 | Outpatient (AMB) | payer OTHER, SELFPAY ==
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
[2025-09-30 10:03] VITALS: BP 110/62; PULSE 80; O2SAT 98
== END 2025-09-30 11:42 | disposition home or self-care (01) ==
LOC: HO.HMCFM 09:33
PROVIDERS: PCP Family Medicine; Visit Provider Family Medicine
DX: M25.569 Pain in unspecified knee (principal)